=== PATIENT | female | born 1990 | race Caucasian/White ===

== ENCOUNTER → 2019-12-21 | Outpatient (CLI) | payer BC, MEDICAID | LOC: M PAIN 13:00 | PROVIDERS: ATTEND Nurse Practitioner Family | DX: M51.16 Intervertebral disc disorders with radiculopathy, lumbar region (principal) ==

== ENCOUNTER → 2020-03-24 | Outpatient (CLI) | payer BC ==
--- NOTE | 2020-03-27 23:12 | ECWPNPC ---
PATIENT NAME: MAGDALENO JORDAN : 1990 GENDER: FEMALE VISIT DATE: 03/24/2020 DISCHARGE DATE: 03/24/20 0000 VISIT LOCKED DATE TIME: PHYSICIAN: DAVID NUNEZ RESOURCE: DAVID NUNEZ REASON FOR APPOINTMENT 1. 3 MONTH F/U FROM DOWN3 MONTH F/U FROM DOWNTIMETIME HISTORY OF PRESENT ILLNESS GENERAL: THIS IS A 3 MONTH FOLLOW-UP OF PERSISTENT LOW BACK PAIN WITH BILATERAL RADICULAR SYMPTOMS RIGHT GREATER THAN LEFT. PATIENT STATES SHE SPOKE WITH A SURGEON WHO IS RECOMMENDING THAT SHE HAVE SURGERY INSTEAD OF TRYING EPIDURAL STEROID INJECTIONS. SHE HAS TO TALK WITH SANGEETA MARIA ABOUT THIS. WE DISCUSSED LUMBAR EPIDURAL STEROID INJECTION. POTENTIAL RISKS AND BENEFITS WERE REVIEWED. PATIENT IS HAVING AN ACUTE FLAREUP OF HER PAIN. FINDING IT DIFFICULT FOR HER TO WORK. DISCUSSED A 5 DAY COURSE OF TORADOL. -. FALL RISK SCREENING: SCREENING :NO FALLS REPORTED IN THE LAST YEAR PAIN SCREENING: PATIENT HAS A COMPLAINT OF ACUTE OR CHRONIC PAIN :YES LOCATION OF PAIN:LOW BACK, LEG(S) INTENSITY OF PAIN (SCALE OF 1 TO 10):7 WHAT DOES YOUR PAIN FEEL LIKE:ACHING, SHARP, SHOOTING DURATION:CONTINOUS, CONSTANT PAIN IS INCREASED BY:ACTIVITIES PAIN IS DECREASED BY:OTHERS MEDICAL [facility] LEVEL OF RELIEF FROM PAIN TREATMENTS IN THE PAST:25% PAIN HAS INTERFERED WITH THE FOLLOWING:BATHING/DRESSING, WALKING ABILITY, HOUSEWORK, SLEEP, TRANSPORTATION, TOILETING NURSING NOTE: -. PAIN CENTER INTAKE QUESTIONS: DO YOU HAVE A HISTORY OF MRSA? :NO DO YOU TAKE A BLOOD THINNERS? :NO DO YOU HAVE ANY BLEEDING DISORDERS? :NO ANY NEW NUMBNESS OR WEAKNESS IN YOUR LEGS OR ARMS? :NO ANY PACEMAKER,DEFIBRILLATOR, OR DORSAL COLUMN STIMULATOR? :NO DO YOU HAVE ANY RASHES OR OPEN SORES? :NO ARE YOU ALLERGIC TO IV DYE? :NO ARE YOU DIABETIC? :NO ANY NEW PROBLEMS WITH YOUR MEDICATIONS? :NO HAVE YOU RECEIVED A VACCINE IN THE PAST 30 DAYS? :NO DO YOU PLAN TO RECEIVE A VACCINE IN THE NEXT 21 DAYS? :NO DO YOU NEED ANY PRESCRIPTION? :NO DO YOU TAKE ANY IMMUNOSUPPRESSIVE MEDICATIONS? :NO IS THERE A CHANCE YOU COULD BE ? :NO ARE YOU BREAST FEEDING? :NO CURRENT MEDICATIONS TAKING AMBIEN 10 MG TABLET 1 TABLET AT BEDTIME NEEDED ORALLY ONCE A DAY TAKING TOPAMAX 200 MG TABLET 1 TABLET ORALLY ONCE A DAY TAKING LORAZEPAM 1 MG TABLET 1 TABLET AT BEDTIME NEEDED ORALLY ONCE A DAY TAKING LAMOTRIGINE 100 MG TABLET 1 TABLET ORALLY ONCE A DAY TAKING LAMOTRIGINE 25 MG TABLET 1 TABLET ORALLY TAKING PRAZOSIN HCL 2 MG CAPSULE 1 CAPSULE AT BEDTIME ORALLY ONCE A DAY TAKING DULOXETINE HCL 30 MG CAPSULE DELAYED RELEASE PARTICLES 1 CAPSULE ORALLY ONCE A DAY TAKING PROPRANOLOL HCL 20 MG TABLET 1 TABLET ORALLY ONCE A DAY TAKING NARATRIPTAN HCL 1 MG TABLET 1 TABLET ORALLY ONCE A DAY TAKING ABILIFY 9.75 MG/1.3ML SOLUTION DIRECTED INTRAMUSCULAR MONTHLY TAKING MAY HAVE MEDICAL [employer] SELINA PRN MEDICATION LIST REVIEWED AND RECONCILED WITH THE PATIENT PAST MEDICAL HISTORY BIPOLAR PTSD SPINAL STENOSIS HERNIATED DISC L4/5 ALLERGIES IODINE: CRACKS SKIN AND CAUSES BLEEDING - ALLERGY SURGICAL HISTORY RIGHT OVARIAN CYST REMOVED 2004 ENDOMETRIOSIS BURNNED OFF 2004 FAMILY HISTORY FATHER: MOTHER: 1 BROTHER(S) . SOCIAL HISTORY GENERAL: TOBACCO USE ARE YOU A:FORMER SMOKER HOW LONG HAS IT BEEN SINCE YOU LAST SMOKED?3-6 MONTHS LATEX QUESTIONNAIRE LATEX ALLERGY : HAVE YOU EVER DEVELOPED ANY TYPE OF REACTION AFTER HANDLING LATEX PRODUCTS SUCH RUBBER GLOVES, CONDOMS, DIAPHRAGMS, BALLOONS, SOCKS, OR UNDERWEAR?NO LATEX ALLERGY : HAVE YOU EVER DEVELOPED ANY TYPE OF REACTION DURING OR AFTER DENTAL APPOINTMENT, VAGINAL/RECTAL EXAMINATION, SURGICAL PROCEDURE, OR ANY OTHER EXPOSURE?NO LATEX RISK : HAVE YOU EVER HAD ANY DIFFICULTY BREATHING OR HIVES AFTER EATING OR HANDLING ANY FRUITS, OR VEGETABLES; SUCH KIWI, BANANAS, STONE FRUITS, OR CHESTNUTSNO LATEX RISK : DO YOU HAVE A PREVIOUS PERSONAL HISTORY OF MORE THAN NINE SURGERIES, SPINA BIFIDA, OR REPEATED CATHERIZATIONS? NO LATEX RISK : ARE YOU FREQUENTLY EXPOSED TO LATEX PRODUCTS IN YOUR OCCUPATION?NO DATE ASKED : 03/24/2020 ALCOHOL SCREENING DID YOU HAVE A DRINK CONTAINING ALCOHOL IN THE PAST YEAR?YES HOW OFTEN DID YOU HAVE A DRINK CONTAINING ALCOHOL IN THE PAST YEAR?MONTHLY OR LESS (1 POINT) HOW MANY DRINKS DID YOU HAVE ON A TYPICAL DAY WHEN YOU WERE DRINKING IN THE PAST YEAR?3 OR 4 (1 POINT) POINTS2 INTERPRETATIONNEGATIVE RECREATIONAL DRUG USE DRUG USE?YES HOW OFTEN AND HOW MUCH? MEDICAL [employer] LANG[employer]AGE LANGUAGES SPOKEN:MARTIN[place]QUAIS LEARNING BARRIERS / SPECIAL NEEDS CHANGE FROM LAST VISIT?NO BARRIERS TO LEARNING?NO HEARING IMPAIRED?NO VISION IMPAIRED?NO COGNITIVELY IMPAIRED?NO READINESS TO LEARN?YES LEARNING PREFERENCES?NO LEARNING CAPABILITIES PRESENT?YES EMOTIONAL BARRIERS?NO SPECIAL DEVICES?NO DOMESTIC VIOLENCE DO YOU FEEL SAFE IN YOUR ENVIRONMENT?YES PAIN CLINIC PFS, CLERGY, PUBLIC HEALTH REFERRALS HAS THE PATIENT BEEN EDUCATED REGARDING HIS/HER PLAN OF CARE?YES HAS THE PATIENT BEEN EDUCATED REGARDING PAIN, THE RISK FOR PAIN, THE IMPORTANCE OF EFFECTIVE PAIN MANAGEMENT, AND THE PAIN ASSESSMENT PROCESS?YES ADVANCE DIRECTIVE ADVANCE DIRECTIVE DISCUSSED WITH PATIENT:YES OFFERED AND DECLINED HOSPITALIZATION/MAJOR DIAGNOSTIC PROCEDURE OVARIAN PAIN 2004 REVIEW OF SYSTEMS CONSTITUTIONAL: ANY RECENT FEVER NO . CHILLS NO . WEIGHT CHANGE OF UNKNOWN REASONS NO . GASTROENTEROLOGY: NEW UNEXPLAINABLE CHANGES IN BOWEL CONTROL NO . CONSTIPATION NO . GENITOURINARY: ANY NEW CHANGE IN BLADDER CONTROL? NO . NEUROLOGY: NEW ONSET DIZZINESS OR NEUROLOGICAL CHANGES NOT MENTIONED NO . NEW NUMBNESS OR PAIN PATTERNS NOT MENTIONED AND PERTINENT TO TODAY'S VISIT NO . CARDIOLOGY: NEW CHEST PRESSURE NO . NEW CHEST PAIN NO . RESPIRATORY: UNEXPLAINABLE COUGH NO . NEW SHORTNESS OF BREATH NO . VITAL SIGNS WT 260.8 LBS, HT 57 IN, BMI 56.43 INDEX, BP 107/65 MM HG, HR 44 /MIN, RR 18 /MIN, TEMP 98.3 F, OXYGEN SAT % 99%, SAFE IN ENV? (Y/N) Y, NA INITIALS AW 1052, REVIEWED BY: JACQUELINE. EXAMINATION GENERAL EXAMINATION: GENERALAWAKE,ALERT ,PLEASANT . PSYCHAFFECT NORMAL . LUNGS:LUNG QUINONEZ ARE CLEAR TO AUSCULTATION BILATERALLY. GOOD MOVEMENT OF AIR . HEART:S1, S2 IN A REGULAR RATE AND RHYTHM. NO SIGNIFICANT MURMURS, RUBS OR GALLOPS NOTED . ASSESSMENTS PROTRUSION OF INTERVERTEBRAL DISC OF LUMBOSACRAL REGION - M51.27 (PRIMARY) LUMBOSACRAL RADICULOPATHY - M54.17 TREATMENT PROTRUSION OF INTERVERTEBRAL DISC OF LUMBOSACRAL REGION START KETOROLAC TROMETHAMINE TABLET, 10 MG, 1 TABLET WITH FOOD OR MILK NEEDED, ORALLY, EVERY 6 HRS, 5 DAY(S), 20, REFILLS 0 NOTES: PATIENT WILL TALK WITH SANGEETA MARIA IN REGARDS TO SURGICAL INTERVENTION. SHE WILL CALL US FOR FOLLOW-UP APPOINTMENT IF SHE DECIDES TO DO LUMBAR EPIDURAL STEROID INJECTION. PROCEDURE CODES [id number] ESTABILISHED PATIENT [facility] CHARGE DISPOSITION & COMMUNICATION FOLLOW UP PATIENT WILL CALL FOR FOLLOW-UP IF NECESSARY (REASON: C CONSIDER LUMBAR EPIDURAL STEROID INJECTION) ELECTRONICALLY SIGNED BY LEANN MURRAY ON 03/27/2020 AT 04:04 PM EST DISCLAIMER : THIS IS A VISIT SUMMARY EXTRACTED FROM THE [employer] CHART. IT IS NOT A COPY OF THE [employer] PROGRESS NOTE. BIANCA
== END ==
LOC: M PAIN 10:30
PROVIDERS: ATTEND Nurse Practitioner Family
DX: M51.27 Other intervertebral disc displacement, lumbosacral region (principal); M54.17 Radiculopathy, lumbosacral region; M48.00 Spinal stenosis, site unspecified; Z86.59 Personal history of other mental and behavioral disorders; Z87.891 Personal history of nicotine dependence; Z88.3 Allergy status to other anti-infective agents; E66.01 Morbid (severe) obesity due to excess calories; Z68.43 Body mass index [BMI] 50.0-59.9, adult; Z79.899 Other long term (current) drug therapy